=== PATIENT | male | born 1980 | race Caucasian/White ===

== ENCOUNTER 2016-08-11 11:37 | Day surgery (SDC) | payer BC ==
--- NOTE | 2016-08-10 16:44 | PCM.PREANE ---
<Rehan Escobar N - Last Filed: 08/11/16 12:18> Preanesthetic Assessment - REVIEW OF SYSTEMS Constitutional: Reports: no symptoms COMMERCIAL MANAGER: Reports: no symptoms Respiratory: Reports: no symptoms (sleep apnea (uses CPAP)) Cardiovascular: Reports: no symptoms GI: Reports: no symptoms Other: Reports: none - PHYSICAL ASSESSMENT Vital Signs: Last Vital Signs Temp 98.8 F 08/11/16 11:51 Pulse 74 08/11/16 11:51 Resp 18 08/11/16 11:51 BP 146/90 H 08/11/16 11:51 Pulse Ox 96 08/11/16 11:51 Mental Status: alert & oriented x3 Dentition: Reports: normal dentition, crown(s) (#8) Thyro-Mental Finger Breadths: 3 Mouth Opening Finger Breadths: 3 ROM/Head Extension: full Respiratory Status: lungs clear to auscultation bilaterally Cardiovascular Status: regular rate & rhythm, normal S1, S2, no murmur, blood pressure WNL - ALLERGIES Allergies/Adverse Reactions: Allergies Allergy/AdvReac Type Severity Reaction Status Date / Time No Known Allergies Allergy Verified 09/16/13 04:24 - BLOOD Blood Available: No Product(s) Available: None - ANESTHESIA PLAN Preop Beta Phyllis: No Anesthesia Type Planned: general anesthesia (LMA vs ) - ACKNOWLEDGEMENTS Pt an appropriate candidate for the planned anesthesia: Yes Alternatives and risks of anesthesia discussed w pt/guardian: Yes Pt/Guardian understands and agree with anesthesia plan: Yes PreAnesthesia Questionnaire - HOME MEDS Home Medications: Home Meds Diclofenac Sodium [Voltaren] 72 mg PO BID 08/06/16 [History] Testosterone Cypionate 1 injection IM ASDIRECTED 08/06/16 [History] Acetaminophen/HYDROcodone [Muldrow 325-5 MG] 1 - 2 tab PO Q4H PRN #80 tablet 08/11 [Rx] - CURRENT (IN HOUSE) MEDS Current Meds: Current Medications Acetaminophen/Hydrocodone Bitart (Muldrow 325-5 Mg) 1 - 2 tab PO Q4H PRN PRN Reason: Pain Lactated Ringer's (Ringers, Lactated) 1,000 mls @ 100 mls/hr IV ASDIRECTED [facility] Last Admin: 08/11/16 11:54 Dose: 100 mls/hr Cefazolin Sodium/Dextrose 2 gm (/ Premix) 50 mls @ 100 mls/hr IV ONCALL YO <Elmira Mendez L - Last Filed: 08/14/16 13:28> Preanesthetic Assessment - ANESTHESIA/TRANSFUSION/FAMILY HX Anesthesia/Transfusion History: No Prior Transfusion(s), Prior Anesthesia Type of Anesthesia Reaction: Denies: Allergy, Anesthesia Awareness, Excessive Somnolence, Excessive Nausea/Vomiting, Excessive Itching, Excessive Shivering, Malignant Hyperthermia, Malignant Hyperthermia, Family History, Pseudocholinesterase Deficiency, Pseudocholinesterase Deficiency, Family History of, Urinary Retention, Unknown, Other (see below) Family History of Anesthesia Reaction: No Other Intubation History Comment: no history of intubation - PHYSICAL ASSESSMENT Vital Signs: Last Vital Signs Temp 98.8 F 08/11/16 11:51 Pulse 74 08/11/16 11:51 Resp 18 08/11/16 11:51 BP 146/90 H 08/11/16 11:51 Pulse Ox 96 08/11/16 11:51 Height: 1.8 m Weight: 117.934 kg ASA Class: 2 - ANESTHESIA PLAN Anesthesia Type Planned: general anesthesia PreAnesthesia Questionnaire HEENT History: Reports: None Cardiovascular History: Reports: None Respiratory History: Reports: Sleep apnea, Other (see below) Other Respiratory History: uses CPAP Gastrointestinal History: Reports: None Genitourinary History: Reports: None Musculoskeletal History: Reports: Fracture Other Musculoskeletal History: hx of fx ribs Neurological History: Reports: None Psychiatric History: Reports: None Endocrine/Metabolic History: Reports: Obesity/BMI 30+ Hematologic History: Reports: None Immunologic History: Reports: None Oncologic (Cancer) History: Reports: None Dermatologic History: Reports: Other (see below) Other Dermatologic History: sensitive to adhesives - Past Surgical History Head Surgeries/Procedures: Reports: None HEENT Surgical History: Reports: Oral surgery Other HEENT Surgeries/Procedures: wisdom teeth removed, has dental braces Cardiovascular Surgical History: Reports: None Respiratory Surgical History: Reports: None GI Surgical History: Reports: Colonoscopy Male Surgical History: Reports: None Endocrine Surgical History: Reports: None Neurological Surgical History: Reports: None Musculoskeletal Surgical History: Reports: None Oncologic Surgical History: Reports: None Dermatological Surgical History: Reports: None - SUBSTANCE USE Smoking Status *Q: Current Every Day Smoker Tobacco Use Within Last Twelve Months: Cigarettes Recreational Drug Use History: No
[~2016-08-11 11:37] MED LIST: Acetaminophen/HYDROcodone 325-5 MG Tab PO PRN; Lactated Ringers 1,000 ML IV SCH; ceFAZolin 2 GM in Premix Bag 1 BAG IV SCH
[2016-08-11] MEDS ORDERED: Propofol 200 MG/20 ML SDV ONE ×2 (12:49→13:24)
[2016-08-11] MEDS ORDERED: Midazolam 1 MG/ML 2 ML SDV ONE (12:49)
[2016-08-11] MEDS ORDERED: Ondansetron 4 MG/2 ML SDV ONE (12:49)
[2016-08-11] MEDS ORDERED: Lidocaine 2% 5 ML SDV ONE (12:49)
[2016-08-11] MEDS ORDERED: fentaNYL 250 MCG/5 ML SDV ONE (12:49)
[2016-08-11] MEDS ORDERED: Sodium Chloride 0.9% 20 ML ONE (12:51)
[2016-08-11] MEDS ORDERED: ceFAZolin 1 GM Vial ONE (12:51)
[2016-08-11] MEDS ORDERED: Lidocaine 1% 50 ML MDV ONE (13:46)
[2016-08-11] MEDS ORDERED: fentaNYL 100 MCG/2 ML SDV IVPUSH PRN (14:34)
[2016-08-11] MEDS ORDERED: HYDROmorphone 2 MG/ML Syringe IVPUSH ONE (14:34)
--- NOTE | 2016-08-11 14:57 | PCM.OPNOTE ---
- General Post-Op/Procedure Note Date of Surgery/Procedure: 08/11/16 Operative Procedure(s): Right knee arthroscopy with partial lateral menisectomy Post-Op Diagnosis: Right knee lateral meniscus tear Anesthesia Technique: General LMA Primary Surgeon: Renita Alarcon Textile Coating Machine Operator: Charline Suero in mLs: 5 Condition: Good Free Text/Narrative:: tt=25 min #[id number]
--- NOTE | 2016-08-11 15:35 | PCM.POSTAN ---
POST ANESTHESIA ASSESSMENT - MENTAL STATUS Mental Status: alert, oriented - VITAL SIGNS Pulse Rate: 86 SaO2: 97 (supplemental nasal oxygen) Resp Rate: 18 Blood Pressure: 149/84 - RESPIRATORY Respiratory Status: respiratory rate WNL, airway patent, supplemental oxygen - CARDIOVASCULAR CV Status: pulse rate WNL, blood pressure stable - GASTROINTESTINAL GI Status: no symptoms - PAIN Pain Score: 3 (med with fentanyl for pain score of 6 now 3) - POST OP HYDRATION Hydration Status: adequate & stable
[2016-08-11 16:21] VITALS: BP 141/91
--- NOTE | 2016-08-11 16:28 | PCM48HPAN ---
Post Anesthesia Note - EVALUATION WITHIN 48HRS OF ANESTHETIC Vital Signs in Normal Range: Yes Patient Participated in Evaluation: Yes Respiratory Function Stable: Yes Airway Patent: Yes Cardiovascular Function Stable: Yes Hydration Status Stable: Yes Pain Control Satisfactory: Yes Nausea and Vomiting Control Satisfactory: Yes Mental Status Recovered: Yes
--- NOTE | 2016-08-11 22:56 | OR ---
SURGEON: Renita Alarcon MD DATE OF PROCEDURE: 08/11/2016 PREOPERATIVE DIAGNOSIS: Right knee lateral meniscus tear. POSTOPERATIVE DIAGNOSIS: Right knee lateral meniscus tear. PROCEDURES: Right knee arthroscopy with partial lateral meniscectomy. RADIAL DRILL OPERATOR: Charline Suero PA-C. ANESTHESIA: General. ESTIMATED BLOOD LOSS: 5 mL. TOURNIQUET TIME: 25 minutes. COMPLICATIONS: None. DVT PROPHYLAXIS: Not indicated. IMPLANTS USED: None. BRIEF HISTORY: Jack is a 36-year-old male, who has had complaint of progressive right knee pain. He did have an MRI, which showed the meniscal signal abnormality to the lateral meniscus. A parameniscal cyst formation was also noted at the periphery of the lateral meniscus. He had failed conservative treatment. At that time, I recommended surgical intervention. The risks and goals of procedure were discussed with the patient and were documented preoperatively. He agreed to proceed. DESCRIPTION OF PROCEDURE: The patient was properly identified and brought to the operating room. He was transferred from the OR cart and placed on the operating room table in supine position. General anesthesia was administered. After adequate anesthesia was obtained, a well-padded tourniquet was applied to the right lower extremity. The right lower extremity was then prepped in standard fashion using ChloraPrep solution. It was then sterilely draped. A time-out was performed to ensure correct site and procedure. Preoperative antibiotics were given. The surgical site had been marked preoperatively. An Esmarch was used to exsanguinate the right lower extremity and the tourniquet was inflated to 250 mmHg. A lateral portal arthrotomy was established. Blunt trocar and cannula were introduced into the suprapatellar pouch. Camera, inflow, and outflow were assembled. No significant synovitis was noted in the suprapatellar pouch. The patellofemoral joint was visualized. No significant degenerative changes were noted. The patella appeared to track centrally. I then extended down the lateral and medial gutter. No loose bodies were identified. I then entered the medial compartment. A medial portal arthrotomy was established. A probe was inserted. The meniscus was extensively probed. No tearing or degeneration was noted. The joint surfaces showed no significant degenerative findings. There was a small area of synovitis along the anterior aspect of the medial meniscus. This was resected with the shaver. I then entered the notch. Both the ACL and PCL were visualized and probed, and found to be stable. I finally entered the lateral compartment. A large horizontal tear of the posterior horn of the lateral meniscus was noted. A probe was inserted and this was found to be unstable. Using a combination of biters and shaver, the meniscus was resected back to a stable remnant. The periphery of the meniscus was inspected. There was a large area of hemorrhagic synovitis. This was resected with the shaver. I did not appreciate any parameniscal cyst under direct vision. The instruments were then removed from the knee. The portal sites were closed with 3-0 nylon. Lidocaine 1% was injected along the portal tracts. Xeroform gauze was placed over the wound and a bulky dressing was applied. The tourniquet was then deflated. He was awakened from his anesthetic and transferred back to the operating room cart. He was brought to recovery room in stable condition. All needle and sponge counts were correct. YI / ROSALINO /[id number]
== END 2016-08-11 16:20 | disposition home or self-care (01) ==
LOC: MW.SDS 11:37
PROVIDERS: ATTEND Orthopaedic Surgery
PROC: 0SBC4ZZ Excision of Right Knee Joint, Percutaneous Endoscopic Approach (ICD-10-PCS; principal; 2016-08-11)
DX: S83.281A Other tear of lateral meniscus, current injury, right knee, initial encounter (principal); W00.0XXA Fall on same level due to ice and snow, initial encounter; N52.9 Male erectile dysfunction, unspecified; E66.9 Obesity, unspecified; G47.30 Sleep apnea, unspecified; Z79.899 Other long term (current) drug therapy; F17.200 Nicotine dependence, unspecified, uncomplicated
CPT/HCPCS: 29881; A9270; J0690; J2250; J2405; J3010; J7120; 01400; 88304; J2704

== ENCOUNTER → 2016-09-25 | Outpatient (CLI) | payer BC | LOC: MW.CHFP 08:01 | PROVIDERS: ATTEND Physician Assistant | DX: N52.9 Male erectile dysfunction, unspecified (principal) | CPT/HCPCS: 84402; 84403; 85025; G0103; 36415 ==

== ENCOUNTER → 2016-09-28 | Outpatient (CLI) | payer BC | LOC: MW.CHUR 13:29 | PROVIDERS: ATTEND Urology | DX: Z31.41 Encounter for fertility testing (principal) | CPT/HCPCS: 81001 ==

== ENCOUNTER → 2016-09-30 | Outpatient (CLI) | payer BC | LOC: MW.LAB 10:50 | PROVIDERS: ATTEND Urology | DX: D75.1 Secondary polycythemia (principal) | CPT/HCPCS: 36415; 80061; 89322; 99195 ==

== ENCOUNTER → 2016-10-01 | Outpatient (CLI) | payer BC | LOC: MW.CHUR 09:17 | PROVIDERS: ATTEND Urology | DX: Z51.81 Encounter for therapeutic drug level monitoring (principal); D75.1 Secondary polycythemia; N52.9 Male erectile dysfunction, unspecified; E29.1 Testicular hypofunction; Z79.899 Other long term (current) drug therapy | CPT/HCPCS: 36415; 84402; 84403; 85025 ==

== ENCOUNTER → 2016-10-06 | Outpatient (CLI) | payer BC | END | disposition home or self-care (01) | LOC: MW.CHFP 11:42 | PROVIDERS: ATTEND Family Medicine | DX: R82.90 Unspecified abnormal findings in urine (principal) | CPT/HCPCS: 81001; 87086 ==

== ENCOUNTER 2018-02-02 15:46 | Emergency (ER) | payer BC, OTHER ==
--- NOTE | 2018-02-02 17:24 | EDM.PDOC ---
<Donna Ayala - Last Filed: 02/02/18 17:28> ED HPI GENERAL MEDICAL PROBLEM - General Chief Complaint: Lower Extremity Injury/Pain Stated Complaint: RT ROLLED IN A HOLE AT WORK Time Seen by Provider: 02/02/18 16:23 Source of Information: Reports: Patient History Limitations: Reports: No Limitations - History of Present Illness INITIAL COMMENTS - FREE TEXT/NARRATIVE: HISTORY AND PHYSICAL: []37-year-old male presenting with having walked into a hole and and rolled her foot History of Present Illness: []Patient was walking across the [place] and did not see the whole or in it and accidentally rolled his ankle Review of Systems: As per history of present illness and below otherwise all systems reviewed and negative. Past medical history: As per history of present illness and as reviewed below otherwise noncontributory. Surgical history: As per history of present illness and as reviewed below otherwise noncontributory. Social history: No reported history of drug or alcohol abuse. Family history: As per history of present illness and as reviewed below otherwise noncontributory. Physical exam: Alert and oriented male answering questions properly in full sentences without any shortness of breath. He is nontoxic in appearance. Ends are reviewed HEENT: Atraumatic, normocehpalic, pupils reactive, negative for conjunctival pallor or scleral icterus, mucous membranes moist, throat clear, neck supple, nontender, trachea midline. Lungs: Clear to auscultation, breath sounds equal bilaterally, chest non tender. Heart: S1S2, regular, negative for clicks, rubs, or JVD. Abdomen: Soft, nondistended, nontender. Negative for masses or hepatossplenmegaly. Negative for costovertebral tenderness. Pelvis: Stable nontender. Genitourinary: Deferred. Rectal: Deferred Extremities: noted to the right malleolar .negative for cords or calf pain. Injury motion is present but limited by pain Neurovascular unremarkable. Neuro: Awake, alert, oriented. Cranial nerves II through XII unremarkable. Cerebellum unremarkable. Motor and sensory unremarkable throughout. Exam nonfocal. Diagnostics: []X-ray Therapeutics: []Walker boot and crutches Impression: []Small avulsion fracture Plan: []Home Referral to orthopedic No weightbearing Return to emergency room as directed and discussed Tylenol 3 3 times a day when necessary pain Definitive disposition and diagnosis as appropriate pending reevaluation and review of above. Onset: Today, Sudden RIght ANkle Pain Score (Numeric/FACES): 7 - Related Data Allergies Allergy/AdvReac Type Severity Reaction Status Date / Time No Known Allergies Allergy Verified 02/02/18 16:19 Home Meds: Home Meds Testosterone Cypionate 1 injection IM ASDIRECTED 08/06/16 [History] Past Medical History HEENT History: Reports: None Cardiovascular History: Reports: None Respiratory History: Reports: Sleep Apnea, Other (See Below) Other Respiratory History: uses CPAP Gastrointestinal History: Reports: None Genitourinary History: Reports: None Musculoskeletal History: Reports: Fracture Other Musculoskeletal History: hx of fx ribs Neurological History: Reports: None Psychiatric History: Reports: None Endocrine/Metabolic History: Reports: Obesity/BMI 30+ Hematologic History: Reports: None Immunologic History: Reports: None Oncologic (Cancer) History: Reports: None Dermatologic History: Reports: Other (See Below) Other Dermatologic History: sensitive to adhesives - Infectious Disease History Infectious Disease History: Reports: Chicken Pox - Past Surgical History Head Surgeries/Procedures: Reports: None HEENT Surgical History: Reports: Oral Surgery Cardiovascular Surgical History: Reports: None GI Surgical History: Reports: Colonoscopy Male Surgical History: Reports: None Neurological Surgical History: Reports: None Musculoskeletal Surgical History: Reports: Arthroscopic Knee Oncologic Surgical History: Reports: None Social & Family History - Family History Family Medical History: Noncontributory - Tobacco Use Smoking Status *Q: Current Every Day Smoker Years of Tobacco use: 20 Packs/Tins Daily: 1 - Caffeine Use Caffeine Use: Reports: None - Alcohol Use Days Per Week of Alcohol Use: 2 Number of Drinks Per Day: 4 Total Drinks Per Week: 8 - Recreational Drug Use Recreational Drug Use: No Review of Systems - Review of Systems Review Of Systems: ROS reveals no pertinent complaints other than HPI. ED EXAM, GENERAL - Physical Exam Exam: See Below (See dictation) Course - Vital Signs Last Recorded V/S: Last Vital Signs Temp 36.1 C 02/02/18 18:26 Pulse 79 02/02/18 18:26 Resp 16 02/02/18 18:26 BP 173/93 H 02/02/18 18:26 Pulse Ox 99 02/02/18 18:26 - Orders/Labs/Meds Orders: Active Orders 24 hr Category Date Time Status Splinting [RC] ASDIRECTED Care 02/02/18 17:27 Active DME for Discharge [COMM] Stat Oth 02/02/18 17:27 Ordered Departure - Departure Time of Disposition: 17:30 Disposition: Home, Self-Care 01 Condition: Good Clinical Impression: Fracture of fibula Closed right ankle fracture Qualifiers: Encounter type: initial encounter Qualified Code(s): S82.891A - Other fracture of right lower leg, initial encounter for closed fracture - Discharge Information *PRESCRIPTION DRUG MONITORING PROGRAM REVIEWED*: Not Applicable *COPY OF PRESCRIPTION DRUG MONITORING REPORT IN PATIENT DEANNA: Not Applicable Instructions: Cast or Splint Care, Adult, [id number], Tibial and Fibular Fractures, Crutch Use, Adult Referrals: Renita Alarcon MD [Physician] - Forms: ED Department Discharge Additional Instructions: The following information is given to patients seen in the emergency department who are being discharged to home. This information is to outline your options for follow-up care. We provide all patients seen in our emergency department with a follow-up referral. The need for follow-up, as well as the timing and circumstances, are variable depending upon the specifics of your emergency department visit. If you don't have a primary care physician on staff, we will provide you with a referral. We always advise you to contact your personal physician following an emergency department visit to inform them of the circumstance of the visit and for follow-up with them and/or the need for any referrals to a consulting specialist. The emergency department will also refer you to a specialist when appropriate. This referral assures that you have the opportunity for followup care with a specialist. All of these measure are taken in an effort to provide you with optimal care, which includes your followup. Under all circumstances we always encourage you to contact your private physician who remains a resource for coordinating your care. When calling for followup care, please make the office aware that this follow-up is from your recent emergency room visit. If for any reason you are refused follow-up, please contact the [facility] emergency department at and asked to speak to the emergency department charge nurse. Home Referral to orthopedic No weightbearing Return to emergency room as directed and discussed Tylenol 3 3 times a day when necessary pain Ice and elevate Referral has been made to Dr. Renita Alarcon [facility] [address] [place] [address], [address] [place] [address] <Juli Nielsen - Last Filed: 02/03/18 07:54> ED HPI GENERAL MEDICAL PROBLEM - History of Present Illness INITIAL COMMENTS - FREE TEXT/NARRATIVE: Please add to physical exam above in extremities that swelling is noted
--- NOTE | 2018-02-02 18:29 | CR ---
EXAM DATE: 02/02/18 PATIENT'S AGE: 37 Patient: MATT QUINTANILLA Facility: [place], [place] Site . Site : [id number] Study: XRay Extremity Right ANKLE [id number]/[id number] 4:40:49 PM Ordering Physician: Doctor Gutierrez Final Report: INDICATION: Rolling injury to ankle. FINDINGS: There is lateral malleolar soft tissue swelling and anterior ankle effusion. Flake avulsion is noted of the distal fibula. The ankle mortise is intact and there is no dislocation. Joint spaces are preserved and bony mineralization is normal. IMPRESSION: Distal fibular flake avulsion with overlying soft tissue injury and joint effusion. Dictated by Nicky Garcia MD @ Feb 02 2018 5:01PM (Electronic Signature) Report Signed by Proxy. HERBERT
[2018-02-02 18:37] VITALS: BP 173/93
== END 2018-02-02 18:29 | disposition home or self-care (01) ==
LOC: MW.ED 15:46
DX: S82.61XA Displaced fracture of lateral malleolus of right fibula, initial encounter for closed fracture (principal); E66.9 Obesity, unspecified; F17.210 Nicotine dependence, cigarettes, uncomplicated; X50.0XXA Overexertion from strenuous movement or load, initial encounter; Y99.0 Civilian activity done for income or pay
CPT/HCPCS: 73610-26-RT; 73610-RT; 99283

== ENCOUNTER 2019-05-27 16:51 | Emergency (ER) | payer BC ==
[2019-05-27 17:10] VITALS: BP 129/93; PULSE 91
--- NOTE | 2019-05-27 17:21 | EDM.PDOC ---
ED HPI GENERAL MEDICAL PROBLEM - General Chief Complaint: Upper Extremity Injury/Pain Stated Complaint: HURT LEFT SHOULDER Time Seen by Provider: 05/27/19 17:02 Source of Information: Reports: Patient History Limitations: Reports: No Limitations - History of Present Illness INITIAL COMMENTS - FREE TEXT/NARRATIVE: HISTORY AND PHYSICAL: History of present illness: Patient is a 38-year-old male presents to the ED today with concern of left shoulder pain and left thigh pain after a fall on the ice that occurred yesterday. Patient states he was walking up to his door when he slipped on a patch of ice and landed on his left shoulder and left thigh. Patient states he' s been able to walk without pain or difficulty since but does have pain with moving his left shoulder. Patient denies hitting his head or loss of consciousness. Patient denies any other symptoms or concerns. Patient denies fever, chills, chest pain, shortness of breath, or cough. Denies headache, neck stiff ness, change in vision, syncope, or near syncope. Denies nausea, vomiting, abdominal pain, diarrhea, constipation, or dysuria. Has not noted any blood in urine or stool. Patient has been eating and drinking appropriately. Review of systems: As per history of present illness and below otherwise all systems reviewed and negative. Past medical history: As per history of present illness and as reviewed below otherwise noncontributory. Surgical history: As per history of present illness and as reviewed below otherwise noncontributory. Social history: See social history for further information Family history: As per history of present illness and as reviewed below otherwise noncontributory. Physical exam: General: Patient is alert, oriented, and in no acute distress. Patient sitting comfortably on exam table. HEENT: Atraumatic, normocephalic, pupils equal and reactive bilaterally, negative for conjunctival pallor or scleral icterus, mucous membranes moist, TMs normal bilaterally, throat clear, neck supple, nontender, trachea midline. No drooling or trismus noted. No meningeal signs. No hot potato voice noted. Lungs: Clear to auscultation, breath sounds equal bilaterally, chest nontender. Heart: S1S2, regular rate and rhythm without overt murmur Abdomen: Soft, nondistended, nontender. Negative for masses or hepatosplenomegaly. Negative for costovertebral tenderness. Pelvis: Stable nontender. Genitourinary: Deferred. Rectal: Deferred. Skin: Intact, warm, dry. No lesions or rashes noted. Extremities: Atraumatic, negative for cords or calf pain. Neurovascular unremarkable. No obvious deformity of the complete bilateral upper extremities or lower extremities. Patient does have full range of motion of bilateral lower extremities without pain or difficulty and does have limited range of motion of the left shoulder due to pain. Radial pulses grossly intact of bilateral upper extremities with capillary refill less than 2 seconds. Neuro: Awake, alert, oriented. Cranial nerves II through XII unremarkable. Cerebellum unremarkable. Motor and sensory unremarkable throughout. Exam nonfocal. Notes: Discussed the importance for follow-up with a primary care provider and orthopedic provider. Voices understanding and is agreeable to plan of care. Denies any further questions or concerns at this time. Diagnostics: Shoulder XR, femur XR Therapeutics: Shoulder sling Prescription: Diclofenac Impression: Left shoulder pain Left leg pain Plan: 1. Rest, ice, elevate the affected extremity. You can apply ice 15 minutes on, 15 minutes off. 2. Tylenol and/or Ibuprofen as directed for pain management or discomfort. 3. Follow up with the Orthopedic provider and primary care provider as discussed. Return to the ED as needed and as discussed. Definitive disposition and diagnosis as appropriate pending reevaluation and review of above. Left Shoulder Pain Score (Numeric/FACES): 10 - Related Data Allergies Allergy/AdvReac Type Severity Reaction Status Date / Time No Known Allergies Allergy Verified 05/27/19 17:07 Home Meds: Home Meds Testosterone Cypionate 1 injection IM ASDIRECTED 08/06/16 [History] Diclofenac Sodium [Voltaren] 75 mg PO BIDMEALS PRN #15 tab.cr 05/27/19 [Rx] Past Medical History HEENT History: Reports: None Cardiovascular History: Reports: None Respiratory History: Reports: Sleep Apnea, Other (See Below) Other Respiratory History: uses CPAP Gastrointestinal History: Reports: None Genitourinary History: Reports: None Musculoskeletal History: Reports: Fracture Other Musculoskeletal History: hx of fx ribs Neurological History: Reports: None Psychiatric History: Reports: None Endocrine/Metabolic History: Reports: Obesity/BMI 30+ Hematologic History: Reports: None Immunologic History: Reports: None Oncologic (Cancer) History: Reports: None Dermatologic History: Reports: Other (See Below) Other Dermatologic History: sensitive to adhesives - Infectious Disease History Infectious Disease History: Reports: Chicken Pox - Past Surgical History Head Surgeries/Procedures: Reports: None HEENT Surgical History: Reports: Oral Surgery Cardiovascular Surgical History: Reports: None GI Surgical History: Reports: Colonoscopy Male Surgical History: Reports: None Neurological Surgical History: Reports: None Musculoskeletal Surgical History: Reports: Arthroscopic Knee Oncologic Surgical History: Reports: None Social & Family History - Family History Family Medical History: Noncontributory - Tobacco Use Smoking Status *Q: Current Every Day Smoker Years of Tobacco use: 20 Packs/Tins Daily: 0.5 - Caffeine Use Caffeine Use: Reports: Coffee Review of Systems - Review of Systems Review Of Systems: Comprehensive ROS is negative, except as noted in HPI. ED EXAM, GENERAL - Physical Exam Exam: See Below (see dictation) Course - Vital Signs Last Recorded V/S: Last Vital Signs Temp 98.5 F 05/27/19 17:07 Pulse 91 05/27/19 17:07 Resp 18 05/27/19 17:07 BP 129/93 H 05/27/19 17:07 Pulse Ox 97 05/27/19 17:07 - Orders/Labs/Meds Orders: Active Orders 24 hr Category Date Time Status DME for Discharge [COMM] Stat Oth 05/27/19 18:51 Ordered Departure - Departure Time of Disposition: 18:52 Disposition: Home, Self-Care 01 Clinical Impression: Injury of left shoulder Qualifiers: Encounter type: initial encounter Qualified Code(s): S49.92XA - Unspecified injury of left shoulder and upper arm, initial encounter Left leg injury Qualifiers: Encounter type: initial encounter Qualified Code(s): S89.92XA - Unspecified injury of left lower leg, initial encounter - Discharge Information Prescriptions: Diclofenac Sodium [Voltaren] 75 mg PO BIDMEALS PRN #15 tab.cr PRN Reason: Pain Referrals: PCP,None [Primary Care Provider] - Forms: ED Department Discharge Additional Instructions: The following information is given to patients seen in the emergency department who are being discharged to home. This information is to outline your options for follow-up care. We provide all patients seen in our emergency department with a follow-up referral. The need for follow-up, as well as the timing and circumstances, are variable depending upon the specifics of your emergency department visit. If you don't have a primary care physician on staff, we will provide you with a referral. We always advise you to contact your personal physician following an emergency department visit to inform them of the circumstance of the visit and for follow-up with them and/or the need for any referrals to a consulting specialist. The emergency department will also refer you to a specialist when appropriate. This referral assures that you have the opportunity for follow-up care with a specialist. All of these measure are taken in an effort to provide you with optimal care, which includes your follow-up. Under all circumstances we always encourage you to contact your private physician who remains a resource for coordinating your care. When calling for follow-up care, please make the office aware that this follow-up is from your recent emergency room visit. If for any reason you are refused follow-up, please contact the [facility] at and asked to speak to the emergency department charge nurse. [facility] [address] [place], [place] [id number] [address] [address] [facility] [address] [place] [address], [address] [place] [address] 1. Rest, ice, elevate the affected extremity. You can apply ice 15 minutes on, 15 minutes off. 2. Tylenol and/or Ibuprofen as directed for pain management or discomfort. 3. Follow up with the Orthopedic provider and primary care provider as discussed. Return to the ED as needed and as discussed. Sepsis Event Note - Evaluation Sepsis Screening Result: No Definite Risk - Focused Exam Vital Signs: Vital Signs Temp Pulse Resp BP Pulse Ox 05/27/19 17:07 98.5 F 91 18 129/93 H 97 Date Exam was Performed: 05/27/19 Time Exam was Performed: 18:52 - My Orders Last 24 Hours: My Active Orders 05/27/19 18:51 DME for Discharge [COMM] Stat - Assessment/Plan Last 24 Hours: My Active Orders 05/27/19 18:51 DME for Discharge [COMM] Stat
--- NOTE | 2019-05-27 18:50 | CR ---
Indication: Fall. Technique: Three views of the left shoulder. Comparison: None Findings: The humeral head is seated within the glenoid. No fracture or subluxation is identified. Impression: No acute fracture Dictated by Wendy Moreno MD @ May 27 2019 6:48PM Signed by Dr. Wendy Moreno @ May 27 2019 6:49PM
--- NOTE | 2019-05-27 18:50 | CR ---
Indication: Fall. Technique: Two views of the left femur. Comparison: None Findings: The femoral head is seated within the acetabulum. No fracture or subluxation is identified. The joint spaces are well maintained. Impression: No acute fracture. Dictated by Wendy Moreno MD @ May 27 2019 6:48PM Signed by Dr. Wendy Moreno @ May 27 2019 6:48PM
== END 2019-05-27 19:01 | disposition home or self-care (01) ==
LOC: MW.ED 16:51
DX: S49.92XA Unspecified injury of left shoulder and upper arm, initial encounter (principal); S89.92XA Unspecified injury of left lower leg, initial encounter; E66.9 Obesity, unspecified; F17.210 Nicotine dependence, cigarettes, uncomplicated; Z68.26 Body mass index [BMI] 26.0-26.9, adult; W00.0XXA Fall on same level due to ice and snow, initial encounter; Y93.01 Activity, walking, marching and hiking
CPT/HCPCS: 73030-26-LT; 73030-LT; 73552-26-LT; 73552-LT; 99283; 99283-25